=== PATIENT | female | born 1950 | race Two or more races ===

== ENCOUNTER 2017-09-22 11:13 | Inpatient (IN) | payer MEDICARE, OTHER ==
[~2017-09-22] VITALS: Ht 162.6 cm; Wt 85.7 kg
--- NOTE | 2017-09-22 11:13 | NUR ---
SENT FROM PMD'S OFFICE FOR SLURRED SPEECH X 11AM YESTERDAY. ALSO C/O OF BODY PAIN. NAD NOTED. 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 PT PLACED ON MONITOR AND MD ELO AT BEDSIDE FOR EVAL.
[2017-09-22 11:37] LABS: BASOPHILS % (AUTO) 0.6 % (0.0-2.0); EOSINOPHILS # (AUTO) 0.1 /CMM (0.0-0.7); EOSINOPHILS % (AUTO) 1.6 % (0.0-6.0); HEMATOCRIT 43 % (33-45); HEMOGLOBIN 13.9 g/dL (11.5-14.8); LYMPHOCYTES # (AUTO) 2.1 /CMM (0.8-4.8); LYMPHOCYTES % (AUTO) 38.1 % (20.0-44.0); MEAN CORPUSCULAR HEMOGLOBIN 26 PG (26.0-33.0); MEAN CORPUSCULAR HGB CONC 32 g/dl (31.0-36.0); MEAN CORPUSCULAR VOLUME 83 fL (82-100); MONOCYTES # (AUTO) 0.5 /CMM (0.1-1.30); MONOCYTES % (AUTO) 8.3 % (2.0-12.0); NEUTROPHILS # (AUTO) 2.9 /CMM (1.8-8.9); NEUTROPHILS % (AUTO) 51.4 % (43.0-81.0); PLATELET COUNT (AUTO) 267 /CMM (150-450); RDW COEFFICIENT OF VARIATION 14.5 (11.5-15.0); RED BLOOD CELL COUNT(AUTO) 5.26 MIL/uL (4.0-5.2); WHITE BLOOD COUNT (AUTO) 5.6 K/uL (4.3-11.0)
[2017-09-22 11:48] LABS: CALCIUM, SERUM 8.9 mg/dL (8.5-10.1); CARBON DIOXIDE 25 mmol/L (21-32); CHLORIDE 108 mmol/L (98-107); CREATININE 0.8 mg/dL (0.6-1.3); GLUCOSE 117 mg/dL (74-106); POTASSIUM 3.5 mmol/L (3.5-5.1); SODIUM SERUM 141 mmol/L (136-145); UREA NITROGEN, BLOOD 17 mg/dL (7-18)
[2017-09-22 11:52] LABS: PROTHROMBIN TIME 10.4 SECS (9.5-12.7)
[2017-09-22 11:57] LABS: TROPONIN I < 0.017 ng/mL (0.00-0.056)
[2017-09-22 12:02] LABS: CHOLESTEROL 191 mg/dL (<200); HDL CHOLESTEROL 84 mg/dL (40-60); LDL 100 mg/dL (0-99); TRIGLYCERIDES 73 mg/dL (30-150)
--- NOTE | 2017-09-22 12:26 | NUR ---
CALLED NURSING SUP. FOR TELE BED
[2017-09-22] MEDS ORDERED: METOCLOPRAMIDE HCL 10 MG/2 ML VIAL ONE (12:27)
[2017-09-22] MEDS ORDERED: diphenhydrAMINE HCL 50 MG/ML VIAL ONE (12:27)
[2017-09-22] MEDS ORDERED: METOCLOPRAMIDE HCL 10 MG/2 ML VIAL IV ONE (12:30)
[2017-09-22] MEDS ORDERED: diphenhydrAMINE HCL 50 MG/ML VIAL IV ONE (12:30)
--- NOTE | 2017-09-22 12:40 | NUR ---
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
[2017-09-22] MEDS ORDERED: BUSP15TA3 PO (12:52)
[2017-09-22] MEDS ORDERED: TOPI100T PO (12:52)
[2017-09-22] MEDS ORDERED: GABA-536 PO (12:52)
[2017-09-22] MEDS ORDERED: TEMA15CA PO (12:52)
[2017-09-22] MEDS ORDERED: TIZA4TAB4 PO (12:52)
--- NOTE | 2017-09-22 12:54 | NUR ---
TELE 311-3
[2017-09-22] MEDS ORDERED: IV NS 0.9% 1,000 ML IV PRN (13:01)
[2017-09-22] MEDS ORDERED: Z GUARD REMEDY 2 OZ OINT TP PRN (13:30)
[2017-09-22] MEDS ORDERED: MAG HYDROX/AL HYDROX/SIMETH 30 ML UDC PO PRN (13:30)
[2017-09-22] MEDS ORDERED: ONDANSETRON HCL/PF 4 MG/2 ML VIAL IVP PRN (13:30)
[2017-09-22] MEDS ORDERED: HYDROCODONE/APAP 5/325MG 1 EACH TABLET PO PRN (13:30)
[2017-09-22] MEDS ORDERED: ACETAMINOPHEN 325 MG TABLET PO PRN (13:30)
[2017-09-22] MEDS ORDERED: ZOLPIDEM TARTRATE 5 MG TABLET PO PRN (13:30)
[2017-09-22] MEDS ORDERED: MAGNESIUM HYDROXIDE 30 ML UDC PO PRN (13:30)
--- NOTE | 2017-09-22 13:30 | NUR ---
REPORT GIVEN TO NICHOLAS CAMPBELL FOR TONJA
[2017-09-22 14:00] VITALS: BP 135/74
[2017-09-22] MEDS ORDERED: ENOXAPARIN SODIUM 40 MG/0.4 ML DISP.SYRIN SQ SCH (14:00)
--- NOTE | 2017-09-22 14:00 | NUR ---
RN OPENING NOTES RECEIVED PATIENT FROM ER VIA [facility]. PATIENT DIAGNOSIS OF POSSIBLE STROKE. PER ER REPORT, PATIENT CAME IN TODAY IN ER FOR SLURRED SPEECH SINCE YESTERDAY AT 1100. HISTORY OF STROKE. PATIENT IS ALERT AND ORIENTED X3, NO ACUTE DISTRESS, NO SOB NOTED. DENIES ANY PAIN, DISCOMFORT, OR HEADACHE. CAME IN THE UNIT WITH SLURRED SPEECH, LEFT SIDE FACIAL DROOP, LEFT SIDE WEAKNESS NOTED. BOTH EYES PERRLA. IV ON LEFT AC INTACT AND PATENT. VITAL SIGN WNL, BP= 135/74, P=63, T=98.1, R=20. MADE AWARE THAT PATIENT IS ON THE UNIT. BED IN LOW, LOCKED POSITION, SIDERAILS UPX2, CALL LIGHT IN REACH. WILL CONTINUE TO MONITOR ACCORDINGLY.
[2017-09-22 15:18] LABS: C-REACTIVE PROTEIN 0.5 mg/dL (0.0-0.9); THYROID STIMULATING HORMONE 0.498 uIU/mL (0.358-3.74)
[2017-09-22 15:46] LABS: INR 1.01 (0.87-1.13); PROTHROMBIN TIME 10.5 SECS (9.5-12.7)
[2017-09-22 16:00] VITALS: BP 130/70
--- NOTE | 2017-09-22 16:14 | NUR ---
RN NOTES DID SWALLOW EVAL TO PATIENT, GAVE SOME APPLE SAUCE, PATIENT REPORTED DIFFICULTY SWALLOWING. NOTIFIED DR DRUMMOND. PER MD, PLACE PATIENT NPO TILL SPEECH THERAPY EVAL.
[2017-09-22] MEDS: GABAPENTIN 400 MG CAPSULE PO SCH (16:22)
[2017-09-22] MEDS: busPIRone 5 MG TABLET PO SCH (16:22)
[2017-09-22] MEDS ORDERED: BLOOD SUGAR DIAGNOSTIC 1 EACH STRIP IN SCH (17:30)
[2017-09-22] MEDS: BLOOD SUGAR DIAGNOSTIC 1 EACH STRIP IN SCH (18:00)
--- NOTE | 2017-09-22 19:30 | NUR ---
TELE/RN RECEIVE PATIENT AWAKE, ALERT, ORIENTED, SLURRED SPEECH, COMFORTABLE, NO C/O PAIN, NO DISTRESS NOTED, CALL LIGHT IN REACH. WILL MONITOR.
--- NOTE | 2017-09-22 19:30 | NUR ---
RN CLOSING NOTES NO SIGNIFICANT CHANGE IN PATIENT'S CONDITION. NO ACUTE DISTRESS, NO SOB NOTED. DENIES PAIN OR DISCOMFORT. NO HEADACHE, NO BLURRED VISION. ALL NEEDS ATTENDED AND PROVIDED. NOTIFIED DR DRUMMOND FOR MRI ORDERS. BED IN LOW, LOCKED POSITION, SIDERAILS UPX2, CALL LIGHT IN REACH. ENDORSED TO NIGHT RN TONJA.
[2017-09-22 20:00] VITALS: BP 130/64
[2017-09-22] MEDS ORDERED: TEMAZEPAM 15 MG CAPSULE PO SCH (22:00)
[2017-09-22] MEDS ORDERED: TOPIRAMATE 100 MG TABLET PO SCH (22:00)
[2017-09-23] VITALS: BP 125/77
[2017-09-23] MEDS: BLOOD SUGAR DIAGNOSTIC 1 EACH STRIP IN SCH ×3 (00:04→13:03)
[2017-09-23 04:00] VITALS: BP 135/63
[2017-09-23 08:00] VITALS: BP 139/72
--- NOTE | 2017-09-23 08:20 | NUR ---
RN OPENING NOTES RECEIVED PATIENT RESTING COMFORTABLY IN BED. AOX4. DENIES SOB, CP OR ANY FORM OF PAIN. RESPIRATIONS EVEN AND UNLABORED. NO ACUTE DISTRESS NOTED. SATURATING ADEQUATELY ON RA. IV ACCESS ON THE LAC 18G PATENT AND INTACT WITH NS RUNNING AT 75MLS/HR. PATIENT IS NPO. PATIENT TO HAVE MRI OF THE BRAIN W/O CONTRAST. BED LOCKED IN THE LOWEST POSITION WITH SIDE RAILS UP X2. CALL LIGHT WITHIN REACH. WILL CONTINUE TO MONITOR, ASSESS AND EDUCATE PATIENT THROUGHOUT SHIFT.
[2017-09-23 08:55] LABS: BASOPHILS % (AUTO) 0.4 % (0.0-2.0); EOSINOPHILS # (AUTO) 0.1 /CMM (0.0-0.7); EOSINOPHILS % (AUTO) 1.7 % (0.0-6.0); HEMATOCRIT 42 % (33-45); HEMOGLOBIN 13.5 g/dL (11.5-14.8); LYMPHOCYTES # (AUTO) 1.4 /CMM (0.8-4.8); LYMPHOCYTES % (AUTO) 32.4 % (20.0-44.0); MEAN CORPUSCULAR HEMOGLOBIN 27 PG (26.0-33.0); MEAN CORPUSCULAR HGB CONC 32 g/dl (31.0-36.0); MEAN CORPUSCULAR VOLUME 83 fL (82-100); MONOCYTES # (AUTO) 0.3 /CMM (0.1-1.30); MONOCYTES % (AUTO) 8.2 % (2.0-12.0); NEUTROPHILS # (AUTO) 2.4 /CMM (1.8-8.9); NEUTROPHILS % (AUTO) 57.3 % (43.0-81.0); PLATELET COUNT (AUTO) 250 /CMM (150-450); RDW COEFFICIENT OF VARIATION 15.1 (11.5-15.0); RED BLOOD CELL COUNT(AUTO) 5.04 MIL/uL (4.0-5.2); WHITE BLOOD COUNT (AUTO) 4.2 K/uL (4.3-11.0)
[2017-09-23 08:59] LABS: INR 1.02 (0.87-1.13); PROTHROMBIN TIME 10.6 SECS (9.5-12.7)
[2017-09-23] MEDS ORDERED: TIZANIDINE HCL 4 MG TABLET PO SCH (09:00)
[2017-09-23 09:06] LABS: CALCIUM, SERUM 8.5 mg/dL (8.5-10.1); CREATININE 0.8 mg/dL (0.6-1.3); MAGNESIUM 2.2 mg/dL (1.8-2.4); PHOSPHORUS 2.4 mg/dL (2.5-4.9); POTASSIUM 3.8 mmol/L (3.5-5.1)
--- NOTE | 2017-09-23 10:00 | NUR ---
RN NOTES PATIENT TAKEN FOR MRI FOR THE BRAIN WITHOUT CONTRAST. PATIENT NPO.
[2017-09-23] MEDS: busPIRone 5 MG TABLET PO SCH (10:06)
[2017-09-23] MEDS: GABAPENTIN 400 MG CAPSULE PO SCH ×2 (10:06→13:02)
[2017-09-23] MEDS ORDERED: ASPIRIN EC 325 MG TABLET.DR PO SCH (12:30)
[2017-09-23 13:01] LABS: ALBUMIN 3.8 g/dL (3.4-5.0); BILIRUBIN,DIRECT 0.1 mg/dL (0.0-0.2); BILIRUBIN,TOTAL 0.9 mg/dL (0.2-1.0); TOTAL PROTEIN, SERUM 7.5 g/dL (6.4-8.2)
[2017-09-23] MEDS ORDERED: ATOR20TA PO (14:10)
[2017-09-23] MEDS ORDERED: ASPI-1169 PO (14:10)
[2017-09-23] MEDS ORDERED: K PHOS NEUTRAL 250 MG TABLET PO ONE (14:30)
--- NOTE | 2017-09-23 17:21 | NUR ---
RN CLOSING NOTES PATIENT DISCHARGED IN STABLE CONDITION. AOX4. VERBALIZED UNDERSTANDING OF DISCHARGE. PATIENT TO FOLLOW UP WITH PCP IN 1 WEEK. IN THE EVENT OF AN EMERGENCY. PATIENT TO RETURN TO EMERGENCY ROOM. PATIENT TO CONTINUE PRESCRIBED MEDICATIONS. ALL NEEDS MET ALL MEDS GIVEN APPROPRIATE. ALL BELONGINGS ACCOUNTED FOR. ALL EXITCARE PROVIDED.
[2017-09-23] MEDS ORDERED: ATORVASTATIN 10 MG TABLET PO SCH (22:00)
== END 2017-09-23 17:10 | disposition home or self-care (01) | DRG 69 ==
LOC: ER 11:15 → TELE 13:32 → MED 09-23 13:09
PROVIDERS: ADMIT Internal Medicine; ATTEND Internal Medicine
DX: G45.9 Transient cerebral ischemic attack, unspecified (principal); R47.01 Aphasia; R53.1 Weakness; E66.9 Obesity, unspecified; E78.5 Hyperlipidemia, unspecified; R73.03 Prediabetes; Z79.899 Other long term (current) drug therapy; Z86.73 Personal history of transient ischemic attack (TIA), and cerebral infarction without residual deficits; Z68.32 Body mass index [BMI] 32.0-32.9, adult
CPT/HCPCS: 36415; 70450-TC; 70551-TC; 71010-TC; 80048-TC; 80061-TC; 80076-TC; 82962-TC; 83735-TC; 83880; 84100-TC; 84443-TC; 84484-TC; 85025-TC; 85652-TC; 85730-TC; 86140-TC; 87081-TC; 92611-TC; 93307-TC; 93880-TC; A4606; J1200; J1650; J2765; J7030; Z7610

== ENCOUNTER 2018-01-07 12:20 | Emergency (ER) | payer MEDICARE, MEDICAID ==
[~2018-01-07] VITALS: Ht 165.1 cm; Wt 68.0 kg
[2018-01-07 12:20] VITALS: BP 140/95
[~2018-01-07 12:20] MED LIST: ASPI-1169 PO; ATOR20TA PO; BUSP15TA3 PO; GABA-536 PO; TEMA15CA PO; TIZA4TAB4 PO; TOPI100T PO
[2018-01-07] MEDS ORDERED: KETOROLAC TROMETHAMINE 15 MG/ML VIAL ONE (13:41)
[2018-01-07] MEDS ORDERED: PIPERACILLIN /TAZOBACTAM 3.375 G in IV D5W 50 ML IV ONE (14:00)
[2018-01-07] MEDS ORDERED: KETOROLAC TROMETHAMINE INJ 30 MG/ML VIAL IV ONE (14:00)
== END 2018-01-07 14:56 | disposition home or self-care (01) ==
LOC: ER 12:23
DX: S61.452A Open bite of left hand, initial encounter (principal); I89.1 Lymphangitis; G89.29 Other chronic pain; Z86.73 Personal history of transient ischemic attack (TIA), and cerebral infarction without residual deficits; Z79.82 Long term (current) use of aspirin; W55.01XA Bitten by cat, initial encounter; Y93.89 Activity, other specified; Y92.89 Other specified places as the place of occurrence of the external cause; Y99.8 Other external cause status
CPT/HCPCS: A4606; J1885; J2543; J7060; Z7610